=== PATIENT | male | born 2000 | race Caucasian/White ===

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

== ENCOUNTER 2020-08-04 19:28 | Emergency (ER) | payer OTHER, SELFPAY ==
[2020-08-04 19:32] VITALS: BP 139/89; PULSE 65; RESP 16; TEMP 36.6; O2SAT 97
--- NOTE | 2020-08-04 20:56 | ED.WOUNDLAC ---
HPI - Wound/Laceration General Chief Complaint: Wound/Laceration Stated Complaint: left index finger cut Time Seen by Provider: 08/04/20 20:08 Source: patient Mode of arrival: Ambulatory Limitations: no limitations History of Present Illness HPI narrative: The patient arrives in the ER 30 minutes after lacerating his left index at home. He was doing woodwork. He was working on a project, he had a with chills was right hand and he struck his left index with the chisel. He sustained a laceration over the DIP joint of the left index finger. There is active bleeding, no loss of motion. No numbness or weakness in the finger. He is right-hand dominant, his tetanus is up-to-date. He has no other injuries, he denies recent illness. Related Data Previous Rx's Medication Instructions Recorded cephalexin [Keflex] 500 mg PO QID #28 cap 08/29/19 oxycodone-acetaminophen [Percocet] 1 tab PO Q4H PRN #20 tab 08/29/19 oxycodone-acetaminophen [Percocet] 1 tab PO Q6H PRN #14 tab 08/29/19 Allergies Allergy/AdvReac Type Severity Reaction Status Date / Time No Known Drug Allergies Allergy Verified 08/29/19 19:25 Review of Systems Review of Systems ROS Unobtainable: All systems reviewed & are unremarkable except as noted in HPI and below Constitutional Comments: No recent illness. Musculoskeletal Comments: Left index injuries noted above. Integumentary/Breasts Comments: Left finger injury, no other skin lesions or rashes. Neurologic Comments: No motor or sensory deficits. Patient History Medical History (Updated 08/04/20 @ 21:01 by Marc Alves MD) Asthma Social History household members: family Smoking Status: Never smoker alcohol intake: never Smoking Status: Never smoker alcohol intake frequency: 0-2 drinks per day Substance Use Type: does not use Exam Initial Vital Signs Initial Vital Signs: Vital Signs Temperature 97.9 F 08/04/20 19:32 Pulse Rate 65 08/04/20 19:32 Respiratory Rate 16 08/04/20 19:32 Blood Pressure 139/89 08/04/20 19:32 Pulse Oximetry 97 08/04/20 19:32 Const General: cooperative and well developed Nutritional Appearance: well nourished Skin Other: No rashes. Neuro General: patient alert and patient oriented x3 Other: Motor and sensory exam to the left index finger are normal. Two point discrimination is normal. Extrem General: full ROM, no clubbing, cyanosis or edema, no pedal edema and no calf tenderness Other: 1.5 cm transverse laceration across the dorsal left index finger, across the DIP joint. Normal extension at the joint, tendons are intact. The wound is clean, there are no foreign bodies. Procedures Laceration Repair Left index laceration: Site: hand ( index finger) Side (If applicable): left Size (cm): 1 Description: linear Depth: simple, single layer Pre-repair: wound explored and irrigated extensively Skin layer closed with: other (Well tolerated by the patient, no complications.) Course Course Course Narrative: The patient irrigated the 1 cm left index laceration with Betadine and saline. Hemostasis was obtained. After closure of the wound with Dermabond, the nurse applied a tube gauze to the wound site. Vital Signs Vital signs: Vital Signs - 8 hr 08/04/ 19:32 Temperature 97.9 F Pulse Rate 65 Respiratory Rate 16 Blood Pressure 139/89 Pulse Oximetry 97 Discharge Plan Departure Patient Disposition: Home Clinical Impression: Laceration of left index finger w/o foreign body w/o damage to nail Qualifiers: Encounter type: initial encounter Qualified Code(s): S61.211A - Laceration without foreign body of left index finger without damage to nail, initial encounter Instructions: DI for Laceration Repair Activity Restrictions/Additional Instructions: Keep the bandage in place for 2 days. After the bandage comes off, cover the wound when up and about. Leave the wound uncovered when resting at home. The glue will start pulling up the edges in 5-7 days. Pulled off when the glue loosens. Return to ER as needed. Prescriptions: No Action oxycodone-acetaminophen [Percocet] 5-325 mg tablet 1 tab PO Q6H PRN (Reason: pain) Qty: 14 RF: 0 oxycodone-acetaminophen [Percocet] 5-325 mg tablet 1 tab PO Q4H PRN (Reason: pain) Qty: 20 RF: 0 cephalexin [Keflex] 500 mg capsule 500 mg PO QID Qty: 28 RF: 0
== END 2020-08-04 21:19 | disposition home or self-care (01) ==
PROVIDERS: Emergency Provider Emergency Medicine
DX: S61.211A Laceration without foreign body of left index finger without damage to nail, initial encounter (principal); W45.8XXA Other foreign body or object entering through skin, initial encounter
CPT/HCPCS: 99281; 99282

== ENCOUNTER 2020-12-17 16:55 | Emergency (ER) | payer OTHER, SELFPAY ==
[2020-12-17 17:15] VITALS: BP 129/70; PULSE 72; RESP 16; TEMP 36.6; O2SAT 99; BMI 31.6
--- NOTE | 2020-12-17 19:26 | ED_ITS ---
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 Minor amount of bruising and contusion to the tip,partial thickness laceration with bleeding controlled. Tender but otherwise neurovascularly intact. Related Data Previous Rx's Medication Instructions Recorded cephalexin 500 mg capsule (Keflex) 500 mg PO QID #28 cap 08/29/19 oxycodone-acetaminophen 5 mg-325 1 tab PO Q4H PRN #20 tab 04/10/20 mg tablet (Percocet) oxycodone-acetaminophen 5 mg-325 1 tab PO Q6H PRN #14 tab 04/10/20 mg tablet (Percocet) Allergies Allergy/AdvReac Type Severity Reaction Status Date / Time No Known Drug Allergies Allergy Verified 12/17/20 17:17 Review of Systems Review of Systems Narrative: Pertinent positive and negative findings as per HPI Remainder of review of systems is otherwise unremarkable for Constitutional: Fevers, chills, weakness ENT: No sore throat, neck pain, ear pain CV: Chest pain, palpitations, Respiratory: Cough, wheeze, dyspnea GI: Nausea, vomiting, diarrhea, Patient History Medical History (Updated 12/17/20 @ 19:41 by Carlyn Proctor MD) Asthma Social History household members: family Smoking Status: Never smoker alcohol intake: never Smoking Status: Never smoker alcohol intake frequency: other Substance Use Type: does not use Exam Narrative Exam Narrative: General: Alert appropriate in no acute distress Respiratory: Able to speak in full sentences, no obvious respiratory distress Skin: No obvious rashes, warm and dry Neurologic: Grossly intact no obvious asymmetries or abnormalities Psych: appropriate insight and affect, cooperative Extremity: Right thumb with some contusion to the tip, minor skin split on the lateral edge of the thumb by the nail. This does not need suturing but will likely heal faster with skin glue applied. Initial Vital Signs Initial Vital Signs: Vital Signs Temperature 97.8 F 12/17/20 17:15 Pulse Rate 72 12/17/20 17:15 Respiratory Rate 16 12/17/20 17:15 Blood Pressure 129/70 12/17/20 17:15 Pulse Oximetry 99 12/17/20 17:15 Procedures Laceration Repair Right thumb: Description: linear (With contusion) Depth: simple, single layer (Only partial layer) Pre-repair: wound explored Skin layer closed with: dermabond (With thumb fingertip aluminum splint applied for comfort) Course Vital Signs Vital signs: Vital Signs - 8 hr 12/17/20 17:15 Temperature 97.8 F Pulse Rate 72 Respiratory Rate 16 Blood Pressure 129/70 Pulse Oximetry 99 MDM - Wound/Laceration Medical Records Medical records narrative: 20-year-old gentleman with minor injury to the distal right thumb. Skin glue used to improve healing time and aluminum splint applied so he does not continue to hit the tip of his thumb that is tender from the contusion. L&I forms are filled out he is safe for discharge Discharge Plan Departure Patient Disposition: Home Clinical Impression: Contusion of right thumb Qualifiers: Encounter type: initial encounter Damage to nail status: without damage Qualified Code(s): S60.011A - Contusion of right thumb without damage to nail, initial encounter Instructions: DI for Laceration Repair -- Finger Activity Restrictions/Additional Instructions: Thank you for coming in today Try to allow the skin glue to stay in place for at least 2-3 days so that the healing is faster for your thumb. Use the aluminum splint for comfort so your it continually hitting your thumb on objects. Using 400 mg of ibuprofen (2 [id number] pills) and 1 Tylenol every 6 hours can be very helpful in controlling pain. I wish you the best Prescriptions: No Action oxycodone-acetaminophen [Percocet] 5-325 mg tablet 1 tab PO Q6H PRN (Reason: pain) Qty: 14 RF: 0 oxycodone-acetaminophen [Percocet] 5-325 mg tablet 1 tab PO Q4H PRN (Reason: pain) Qty: 20 RF: 0 cephalexin [Keflex] 500 mg capsule 500 mg PO QID Qty: 28 RF: 0
== END 2020-12-17 19:51 | disposition home or self-care (01) ==
PROVIDERS: Emergency Provider Emergency Medicine
DX: S60.011A Contusion of right thumb without damage to nail, initial encounter (principal); W23.0XXA Caught, crushed, jammed, or pinched between moving objects, initial encounter; Y99.0 Civilian activity done for income or pay
CPT/HCPCS: 12001; 99281; 99282